=== PATIENT | male | born 1955 | race Caucasian/White ===

== ENCOUNTER 2021-10-21 15:20 | Emergency (ER) | payer MEDICAID, OTHER ==
[~2021-10-21] VITALS: Ht 170.2 cm; Wt 65.9 kg
[2021-10-21 16:47] LABS: Basophils # (auto) 0 10 ^3/uL (0-0.2); Basophils % (auto) 0.4 % (0.0-2.0); Eosinophils # (auto) 0 10 ^3/uL (0-0.8); Eosinophils % (auto) 0.1 % (0.0-7.0); Hematocrit 46.7 % (41.0-53.0); Hemoglobin 15.3 g/dL (13.5-17.5); Lymphocytes # (auto) 2.8 10 ^3/uL (0.4-5.4); Lymphocytes % (auto) 31.1 % (10.0-50.0); Mean Corpuscular Hemoglobin 30.2 pg (28.0-32.0); Mean Corpuscular Hgb Conc. 32.7 g/dL (32.0-36.0); Mean Corpuscular Volume 92.5 fL (80.0-100.0); Monocytes # (auto) 0.3 10 ^3/uL (0-1.3); Monocytes % (auto) 3.7 % (0.0-12.0); Neutrophils # (auto) 5.8 10 ^3/uL (1.6-8.6); Neutrophils % (auto) 64.7 % (37.0-80.0); Nucleated Red Blood Cells % 0.1 %; Red Blood Cells 5.05 10^6/uL (4.5-5.90); Red Cell Distribution Width 12.3 % (11.8-14.3)
[2021-10-21 17:03] LABS: Albumin 3.8 g/dL (3.4-5.0); Potassium 3.6 mmol/L (3.5-5.1)
[2021-10-21 17:08] LABS: Bilirubin, Total 0.5 mg/dL (0.2-1.0); Total Protein 7.9 g/dL (6.4-8.2)
[2021-10-21] MEDS ORDERED: SODIUM CHLORIDE 0.9% 1,000 ML IV ONE ×2 (22:15)
[2021-10-21] MEDS ORDERED: THIAMINE HCL 100 MG TAB PO ONE (22:15)
[2021-10-22] MEDS ORDERED: SODIUM CHLORIDE 0.9% 1,000 ML IV ONE ×3 (02:45→10:00)
[2021-10-22 03:54] LABS: Amphetamine Screen, Urine NEGATIVE (NEGATIVE); Barbiturate Scree,Urine NEGATIVE (NEGATIVE); Benzodiazephine Screen, Urine NEGATIVE (NEGATIVE); Cannabinoid Screen, Urine NEGATIVE (NEGATIVE); Cocaine Screen, Urine NEGATIVE (NEGATIVE); Opiate Scree,Urine NEGATIVE (NEGATIVE); Phencyclidine Screen, Urine NEGATIVE (NEGATIVE)
[2021-10-22] MEDS ORDERED: ONDANSETRON HCL 4 MG/2 ML VIAL IV ONE (04:30)
[2021-10-22] MEDS ORDERED: LORATADINE 10 MG TAB PO ONE (08:45)
[2021-10-22 10:30] VITALS: BP 146/74
[2021-10-22] MEDS ORDERED: chlordiazePOXIDE HCL 25 MG CAP PO ONE (10:30)
== END 2021-10-22 11:26 | disposition home or self-care (01) ==
LOC: ER 15:20 → EDBD 15:20 → ER 10-22 11:26
DX: F10.129 Alcohol abuse with intoxication, unspecified (principal); R51.9 Headache, unspecified; M54.2 Cervicalgia; W18.09XA Striking against other object with subsequent fall, initial encounter; Y93.89 Activity, other specified; Y92.89 Other specified places as the place of occurrence of the external cause; Y99.8 Other external cause status; Y90.8 Blood alcohol level of 240 mg/100 ml or more
CPT/HCPCS: 36415; 70450; 71045; 72125; 80053; 80307; 80320; 85025; 96361; 96374; 99285; J2405; J7030

== ENCOUNTER 2021-10-22 16:09 | Emergency (ER) | payer MEDICAID ==
[2021-10-22] MEDS ORDERED: SODIUM CHLORIDE 0.9% 1,000 ML IV ONE (16:30)
== END 2021-10-22 18:44 | disposition left against medical advice (07) ==
LOC: ER 16:09
DX: F10.10 Alcohol abuse, uncomplicated (principal); E11.9 Type 2 diabetes mellitus without complications; E78.5 Hyperlipidemia, unspecified; K21.9 Gastro-esophageal reflux disease without esophagitis; Y90.8 Blood alcohol level of 240 mg/100 ml or more
CPT/HCPCS: 36415; 80320

== ENCOUNTER 2021-10-23 05:20 | Emergency (ER) | payer MEDICAID ==
[~2021-10-23] VITALS: Ht 170.2 cm; Wt 81.8 kg
[2021-10-23] MEDS ORDERED: SODIUM CHLORIDE 0.9% 1,000 ML IV ONE ×3 (06:00→07:45)
[2021-10-23 06:09] LABS: Basophils # (auto) 0.1 10 ^3/uL (0-0.2); Basophils % (auto) 0.5 % (0.0-2.0); Eosinophils # (auto) 0.1 10 ^3/uL (0-0.8); Eosinophils % (auto) 0.6 % (0.0-7.0); Hematocrit 44.1 % (41.0-53.0); Hemoglobin 15.1 g/dL (13.5-17.5); Lymphocytes # (auto) 3.4 10 ^3/uL (0.4-5.4); Lymphocytes % (auto) 36.7 % (10.0-50.0); Mean Corpuscular Hemoglobin 31.8 pg (28.0-32.0); Mean Corpuscular Hgb Conc. 34.2 g/dL (32.0-36.0); Mean Corpuscular Volume 93.1 fL (80.0-100.0); Monocytes # (auto) 0.5 10 ^3/uL (0-1.3); Monocytes % (auto) 5.4 % (0.0-12.0); Neutrophils # (auto) 5.3 10 ^3/uL (1.6-8.6); Neutrophils % (auto) 56.8 % (37.0-80.0); Nucleated Red Blood Cells % 0.1 %; Red Blood Cells 4.74 10^6/uL (4.5-5.90); Red Cell Distribution Width 12.6 % (11.8-14.3); White Blood Cell 9.4 10^3/uL (4.4-10.8)
[2021-10-23 06:29] LABS: Calcium 8.6 mg/dL (8.5-10.1); Potassium 3.7 mmol/L (3.5-5.1)
[2021-10-23 06:38] LABS: Albumin 3.8 g/dL (3.4-5.0); BUN/Creatinine Ratio 8.5; Bilirubin, Total 0.4 mg/dL (0.2-1.0)
[2021-10-23] MEDS ORDERED: THIAMINE 100mg/ml INJ (200mg/2ml VIAL) IV ONE (07:45)
[2021-10-23] MEDS ORDERED: chlordiazePOXIDE HCL 5 MG CAP PO ONE (07:45)
[2021-10-23 08:00] VITALS: BP 130/76
== END 2021-10-23 12:41 | disposition home or self-care (01) ==
LOC: ER 05:20
DX: F10.10 Alcohol abuse, uncomplicated (principal); E11.65 Type 2 diabetes mellitus with hyperglycemia; E78.5 Hyperlipidemia, unspecified; K21.9 Gastro-esophageal reflux disease without esophagitis; Y90.8 Blood alcohol level of 240 mg/100 ml or more
CPT/HCPCS: 36415; 80053; 80320; 85025; 96361; 96374; 99283; J3411; J7030

== ENCOUNTER 2021-10-23 14:05 | Emergency (ER) | payer MEDICAID ==
[2021-10-23] MEDS ORDERED: SODIUM CHLORIDE 0.9% 1,000 ML IV ONE (14:15)
[2021-10-23 14:58] LABS: Basophils # (auto) 0.1 10 ^3/uL (0-0.2); Basophils % (auto) 0.6 % (0.0-2.0); Eosinophils # (auto) 0 10 ^3/uL (0-0.8); Eosinophils % (auto) 0.4 % (0.0-7.0); Hematocrit 40.6 % (41.0-53.0); Lymphocytes # (auto) 1.8 10 ^3/uL (0.4-5.4); Lymphocytes % (auto) 19.1 % (10.0-50.0); Mean Corpuscular Volume 93.6 fL (80.0-100.0); Monocytes # (auto) 0.5 10 ^3/uL (0-1.3); Monocytes % (auto) 5.4 % (0.0-12.0); Neutrophils % (auto) 74.5 % (37.0-80.0); Red Blood Cells 4.33 10^6/uL (4.5-5.90); Red Cell Distribution Width 12.3 % (11.8-14.3); White Blood Cell 9.3 10^3/uL (4.4-10.8)
[2021-10-23 15:18] LABS: Calcium 7.8 mg/dL (8.5-10.1); Potassium 3.8 mmol/L (3.5-5.1)
[2021-10-23 15:23] LABS: BUN/Creatinine Ratio 9.1; Bilirubin, Total 0.4 mg/dL (0.2-1.0)
[2021-10-23 20:20] VITALS: BP 147/84
== END 2021-10-23 20:53 | disposition left against medical advice (07) ==
LOC: EDBD 14:05 → ER 14:05
DX: F10.129 Alcohol abuse with intoxication, unspecified (principal); Y90.8 Blood alcohol level of 240 mg/100 ml or more
CPT/HCPCS: 36415; 80053; 80320; 85025; 96360; 96361

== ENCOUNTER 2021-10-23 21:49 | Emergency (ER) | payer MEDICAID ==
[~2021-10-23] VITALS: Ht 170.2 cm; Wt 65.9 kg
[2021-10-24 05:30] VITALS: BP 126/67
== END 2021-10-26 00:37 | disposition home or self-care (01) ==
LOC: ER 21:49
DX: F10.129 Alcohol abuse with intoxication, unspecified (principal); R41.82 Altered mental status, unspecified; Y90.8 Blood alcohol level of 240 mg/100 ml or more
CPT/HCPCS: 36415; 70450; 80320; 82962

== ENCOUNTER 2021-10-24 13:29 | Emergency (ER) | payer MEDICAID ==
[~2021-10-24] VITALS: Ht 177.8 cm; Wt 113.0 kg
[2021-10-24 18:23] LABS: Basophils # (auto) 0 10 ^3/uL (0-0.2); Basophils % (auto) 0.5 % (0.0-2.0); Eosinophils # (auto) 0 10 ^3/uL (0-0.8); Eosinophils % (auto) 0.4 % (0.0-7.0); Hematocrit 42.5 % (41.0-53.0); Hemoglobin 13.8 g/dL (13.5-17.5); Lymphocytes # (auto) 2.3 10 ^3/uL (0.4-5.4); Lymphocytes % (auto) 25.5 % (10.0-50.0); Mean Corpuscular Hgb Conc. 32.6 g/dL (32.0-36.0); Mean Corpuscular Volume 92.2 fL (80.0-100.0); Monocytes # (auto) 0.5 10 ^3/uL (0-1.3); Monocytes % (auto) 5.9 % (0.0-12.0); Neutrophils % (auto) 67.7 % (37.0-80.0); Nucleated Red Blood Cells % 0.1 %; Red Blood Cells 4.61 10^6/uL (4.5-5.90); Red Cell Distribution Width 12.7 % (11.8-14.3); White Blood Cell 8.9 10^3/uL (4.4-10.8)
[2021-10-24 18:46] LABS: Albumin 3.2 g/dL (3.4-5.0); Calcium 8.3 mg/dL (8.5-10.1); Potassium 3.8 mmol/L (3.5-5.1)
[2021-10-24 18:50] LABS: BUN/Creatinine Ratio 8.1; Bilirubin, Total 0.5 mg/dL (0.2-1.0); Total Protein 6.7 g/dL (6.4-8.2)
[2021-10-24 19:38] VITALS: BP 149/76
== END 2021-10-24 21:32 | disposition home or self-care (01) ==
LOC: ER 13:29 → EDBD 13:29 → ER 21:17
DX: F10.129 Alcohol abuse with intoxication, unspecified (principal); Y90.8 Blood alcohol level of 240 mg/100 ml or more
CPT/HCPCS: 36415; 80053; 80320; 85025